=== PATIENT | male | born 1995 ===

== ENCOUNTER 2017-07-17 14:37 | Emergency (ER) | payer OTHER ==
[2017-07-17 15:09] VITALS: BP 122/78
[2017-07-17] MEDS ORDERED: Amoxicillin PO (*) 500 MG CAP PO ONE (16:04)
--- NOTE | 2017-07-17 16:12 | UC ---
Respiratory Complaint HPI - HPI Summary HPI Summary: c/o fever, nasal congestion, facial pain, malaise, and having to sleep the whole afternoon yesterday with fatigue for the past 5 days. HE states lately he has been getting recurrent episodes similar to this one but takes several weeks to recover from each of them. Denies smoking, history of asthma or seasonal allergies - History of Current Complaint Chief Complaint: UCGeneralIllness Stated Complaint: HEADACHE Time Seen by Provider: 07/17/17 15:56 Hx Obtained From: Patient Onset/Duration: Gradual Onset, Lasting Days Severity Initially: Mild Severity Currently: Moderate Pain Intensity: 6 Character: Cough: Nonproductive Aggravating Factors: Nothing Alleviating Factors: Nothing Associated Signs And Symptoms: Positive: Fever, Nasal Congestion, Sinus Discomfort - Risk Factors Pulmonary Embolism Risk Factors: Negative Cardiac Risk Factors: Negative Pseudomonas Risk Factors: Negative Tuberculosis Risk Factors: Negative - Allergies/Home Medications Allergies/Adverse Reactions: Allergies Allergy/AdvReac Type Severity Reaction Status Date / Time No Known Allergies Allergy Verified 07/17/17 15:09 PMH/Surg Hx/FS Hx/Imm Hx Previously Healthy: Yes - Surgical History Surgical History: None - Social History Alcohol Use: Occasionally Substance Use Type: None Smoking Status (MU): Never Smoked Tobacco Review of Systems Constitutional: Fever ENT: Nasal Discharge, Sinus Pain/Tenderness All Other Systems Reviewed And Are Negative: Yes Physical Exam Triage Information Reviewed: Yes Appearance: No Pain Distress, Well-Nourished, Ill-Appearing Vital Signs: Initial Vital Signs Temp 99.2 F 07/17/17 15:05 Pulse 81 07/17/17 15:05 Resp 20 07/17/17 15:05 BP 122/78 07/17/17 15:05 Pulse Ox 100 07/17/17 15:05 Vital Signs Reviewed: Yes Eyes: Positive: Conjunctiva Clear ENT: Positive: Pharynx normal, Nasal congestion, Nasal drainage, TMs normal, Sinus tenderness, Uvula midline Neck: Positive: Supple, Nontender, No Lymphadenopathy Respiratory: Positive: Chest non-tender, Lungs clear, Normal breath sounds, No respiratory distress Cardiovascular: Positive: RRR, No Murmur, Pulses Normal, Brisk Capillary Refill Abdomen Description: Positive: Nontender, No Organomegaly, Soft UC Diagnostic Evaluation - Laboratory O2 Sat by Pulse Oximetry: 100 Respiratory Course/Dx - Course Course Of Treatment: influenza test negative. Patient has b/l maxillary sinus tenderness to start amoxil as prescribed for 10days, f/u at [facility]. Oral hydration, tylenol as needed. - Differential Dx/Diagnosis Provider Diagnoses: acute maxillary sinusitis Discharge - Sign-Out/Discharge Documenting (check all that apply): Discharge/Admit/Transfer - Discharge Plan Condition: Stable Disposition: HOME Prescriptions: Amoxicillin PO (*) [Amoxicillin 875 MG (*)] 875 mg PO BID 10 Days #20 tab Patient Education Materials: Amoxicillin (By mouth), Rhinosinusitis (ED) Referrals: [facility] [place] [facility] [Outside] No Primary Care Phys,NOPCP [Primary Care Provider] - - Billing Disposition and Condition Condition: STABLE Disposition: HOME
== END 2017-07-17 16:16 | disposition home or self-care (01) ==
LOC: UCEAST 14:37
DX: J01.00 Acute maxillary sinusitis, unspecified (principal)
CPT/HCPCS: 87502; 99202; A9270-GY; G0463